=== PATIENT | female | born 1985 | race Caucasian/White ===

== ENCOUNTER 2023-05-04 07:41 | Day surgery (SDC) | payer MEDICAID ==
[2023-05-04] MEDS ORDERED: MEPERIDINE 100 MG INJ. 100 MG/ML VIAL ONE (08:44)
[2023-05-04] MEDS ORDERED: MIDAZOLAM HCL 5 MG/5 ML VIAL ONE ×2 (08:45→11:36)
[2023-05-04 08:54] LABS: HCG,QUAL RESULT NEGATIVE (NEGATIVE)
[2023-05-04 14:31] VITALS: O2SAT 100
[2023-05-04 15:48] VITALS: BP_SYST 116; PULSE 73; RESP 20
== END 2023-05-04 12:40 | disposition home or self-care (01) ==
LOC: SDS 07:41 → SMU 07:50 → SDS 12:40
PROVIDERS: ATTEND Internal Medicine Gastroenterology
DX: R19.4 Change in bowel habit (principal); K64.8 Other hemorrhoids; J45.909 Unspecified asthma, uncomplicated; Z80.0 Family history of malignant neoplasm of digestive organs; Z79.899 Other long term (current) drug therapy
CPT/HCPCS: 45378; 99152; 84703; G0378; J2250; J2175